=== PATIENT | male | born 1995 | race Caucasian/White ===

== ENCOUNTER 2019-04-29 17:47 | Emergency (ER) | payer OTHER, SELFPAY ==
[2019-04-29 18:02] VITALS: BP 121/60; PULSE 72; RESP 18; TEMP 36.9; O2SAT 96; BMI 28.3
--- NOTE | 2019-04-29 18:19 | ED_ITS ---
HPI - Allergic Reaction <CHELITA Orozco - Last Filed: 04/29/19 21:45> General Chief complaint: Allergic Reaction Stated complaint: thinks bug bite right hand, hurts Time Seen by Provider: 04/29/19 18:11 Source: patient Mode of arrival: ambulatory Limitations: no limitations History of Present Illness HPI narrative: 24-year-old healthy male presents emergency department today complaining of right hand pain after being stung in the palm by an unknown insect. He states he feels like his arm was wearing a sleeve and he developed a 2/10 aching headache on the right side of his face and behind his eye. He denies any allergies to bees or insect, no swelling of his hand, no airway difficulty, no shortness of breath, no difficulty swallowing, no sore throat, no change in vision, no neck pain, and nausea, vomiting, diarrhea, chest pain, or syncope. He denies taking any medication for this stating. Denies erythema or lacerations to the area. Related Data Allergies Allergy/AdvReac Type Severity Reaction Status Date / Time cat dander Allergy Verified 04/29/19 18:15 nickel Allergy Verified 04/29/19 18:15 Review of Systems <CHELITA Orozco - Last Filed: 04/29/19 21:45> Review of Systems REVIEW OF SYSTEMS: GENERAL: Denies fever or chills. HENT: Denies head trauma. Denies oral swelling, see HPI. EYE: Denies double vision or vision loss. CARDIOVASCULAR: Denies syncope. MUSCULOSKELETAL: Denies weakness, or deformities. INTEGUMENTARY: Complains of insert sting with pain, see HPI. NEURO: Denies numbness or tingling. PFSH <CHELITA Orozco - Last Filed: 04/29/19 21:45> Medical History No significant medical problems (Acute) Social History Smoking Status: Current some day smoker Social History Smoking Status: Current some day smoker Exam <CHELITA Orozco - Last Filed: 04/29/19 21:45> Initial Vital Signs Initial Vital Signs: Vital Signs Temperature 98.4 F 04/29/19 18:02 Pulse Rate 72 04/29/19 18:02 Respiratory Rate 18 04/29/19 18:02 Blood Pressure 121/60 04/29/19 18:02 Pulse Oximetry 96 04/29/19 18:02 PHYSICAL EXAMINATION: GENERAL: Well groomed, alert, and cooperative. Answers questions promptly and appropriately. Vital signs noted. HENT: Normocephalic, atraumatic. No periorbital swelling, tongue is normal size without swelling. Slight erythema in the back of oropharynx without exudate or swelling. TMs intact with crisp light reflex. Voice is clear without hoarseness. EYE: PERRLA, no periorbital swelling or erythema. RESPIRATORY: Normal respiratory rate, trachea midline, airway patent. No stridor, nasal flaring or accessory muscle use. Lung sounds clear bilaterally CARDS: Normal rate and rhythm, S1 and S2 heard. MUSCULOSKELETAL: Normal gait and coordination. Equal tone and mass bilaterally. Equal strength to upper extremities bilaterally, full range of motion to upper extremities without pain. EXTREMITIES: CMS intact. Moves all extremities. SKIN: Warm, dry, soft, appropriate color for ethnicity. No erythema to palmar surface of right hand or patient states he was stung. Very slight area of erythema noted to right palmar surface of thumb approximately 0.5cm in diameter. NEURO: Alert and Oriented X 3. Good coordination. PSYCH: Appropriate affect and mood. <Niko Price MD - Last Filed: 04/30/19 00:47> Initial Vital Signs Initial Vital Signs: Vital Signs Temperature 98.4 F 04/29/19 18:02 Pulse Rate 72 04/29/19 18:02 Respiratory Rate 18 04/29/19 18:02 Blood Pressure 121/60 04/29/19 18:02 Pulse Oximetry 96 04/29/19 18:02 Course <CHELITA Orozco - Last Filed: 04/29/19 21:45> Course Narrative: After administration of Toradol and Benadryl patient states his symptoms were resolved. He requested a work note for today as Benadryl has made him sleepy. Additionally no erythema was seen on a cm. Orders Ordered: Discontinued Medications Diphenhydramine HCl (Benadryl) 25 mg PO NOW ONE Stop: 04/29/19 18:18 Last Admin: 04/29/19 18:29 Dose: 25 mg Ketorolac Tromethamine (Toradol) 30 mg IM NOW ONE Stop: 04/29/19 18:18 Last Admin: 04/29/19 18:29 Dose: 30 mg Vital Signs - 8 hr 04/29/19 18:02 04/29/19 19:00 04/29/19 19:28 Temperature 98.4 F Pulse Rate 72 65 71 Respiratory Rate 18 16 Blood Pressure 121/60 106/64 Blood Pressure [Right Arm] 109/64 Pulse Oximetry 96 97 97 <Niko Price MD - Last Filed: 04/30/19 00:47> Orders Ordered: Discontinued Medications Diphenhydramine HCl (Benadryl) 25 mg PO NOW ONE Stop: 04/29/19 18:18 Last Admin: 04/29/19 18:29 Dose: 25 mg Ketorolac Tromethamine (Toradol) 30 mg IM NOW ONE Stop: 04/29/19 18:18 Last Admin: 04/29/19 18:29 Dose: 30 mg Vital Signs - 8 hr 04/29/19 18:02 04/29/19 19:00 04/29/19 19:28 Temperature 98.4 F Pulse Rate 72 65 71 Respiratory Rate 18 16 Blood Pressure 121/60 106/64 Blood Pressure [Right Arm] 109/64 Pulse Oximetry 96 97 97 MDM - Allergic Reaction <CHELITA Orozco - Last Filed: 04/29/19 21:45> Medical Records Attestation: I reviewed the patient's medical records. Lab Data Attestation: I reviewed the patient's lab results. MDM Narrative Medical decision making narrative: Differential includes bee sting (report of a stinging insect, increased pain and hand--I suspect neurological sensations are caused from the venom of the insect sting and or the sting being closer nerve), or allergic reaction (less likely due to lack of angioedema, hives, or significant swelling or pruritus). Strict return precautions given and follow- up instructions discussed. Discharge Plan Departure Patient Disposition: Home Clinical Impression: Sting Discharge Date/Time: 04/29/19 19:29 Interventions: ED Discharge Assessment Last Done: 04/29/19 19:28 Activity Restrictions/Additional Instructions: Thank you for entrusting me with your care today. As discussed, it appears that you have been stung by an insect. You may take Benadryl tomorrow if your symptoms persist. Follow up with your primary care provider if needed. Return to the emergency department if he develops airway swelling, syncope, chest pain, shortness of breath, swelling in her mouth or tongue, or high fevers. Stand Alone Forms: Work Release Note <Niko Price MD - Last Filed: 04/30/19 00:47> [facility] ED Attending Preeti Attestation: I was present in the ER at the time this patient's care. I was available for consultation or to see the patient directly if requested. I agree with the assessment and treatment plan.
[2019-04-29] MEDS: KETOROLAC 60 MG/2 ML VIAL 30 MG IM (18:29)
[2019-04-29] MEDS: diphenhydrAMINE 25 MG TABLET PO (18:29)
[2019-04-29 19:00] VITALS: BP 109/64; PULSE 65; O2SAT 97
[2019-04-29 19:28] VITALS: BP 106/64; PULSE 71; RESP 16; O2SAT 97
== END 2019-04-29 19:29 | disposition home or self-care (01) ==
PROVIDERS: Emergency Provider Nurse Practitioner
DX: T63.481A Toxic effect of venom of other arthropod, accidental (unintentional), initial encounter (principal)
CPT/HCPCS: 96372; 99282; 99283; J1885